=== PATIENT | female | born 1980 | race Caucasian/White ===

== ENCOUNTER 2020-02-24 17:21 | Outpatient (CLI) | payer OTHER ==
[2020-02-24] MEDS ORDERED: IOVERSOL 320 50 ML VIAL ONE (17:33)
[2020-02-24] MEDS ORDERED: IOVERSOL 320 100 ML VIAL IVP ONE (18:12)
[2020-02-24] MEDS ORDERED: IOVERSOL 320 100 ML VIAL IVP STA (19:27)
[2020-02-24] MEDS ORDERED: IOVERSOL 320 50 ML VIAL PO ONE (19:27)
--- NOTE | 2020-02-24 20:01 | CT Report ---
Reason: LLQ ABDOMINAL PAIN Procedure Date: 02/24/2020 Accession Number: [id number] / [id number] Procedure: CT - Abdomen/Pelvis W CPT Code: Addended Final Report FULL RESULT: EXAM: CT ABDOMEN AND PELVIS EXAM DATE: 02/24/2020 07:23 PM. CLINICAL HISTORY: Left lower quadrant abdominal pain and constipation x1 month. COMPARISONS: None. TECHNIQUE: Routine helical CT imaging was performed through the abdomen and pelvis. IV contrast: OPTIRAY 320. Enteric contrast: Yes. Reconstructions: Coronal and sagittal. In accordance with CT protocol optimization, one or more of the following dose reduction techniques were utilized for this exam: automated exposure control, adjustment of mA and/or KV based on patient size, or use of iterative reconstructive technique. FINDINGS: The lung bases are clear. The visible heart is normal in size. There is no pericardial effusion. The liver enhances homogeneously and is without evidence of focal intrahepatic mass. The gallbladder is normal. There is no biliary dilatation. The spleen, pancreas, and adrenal glands are within normal limits. The kidneys enhance symmetrically and are without evidence of mass or hydronephrosis. The intestines are normal in caliber and position. Retained stool seen throughout the colon. The appendix is normal. There is no evidence of bowel obstruction or inflammation. No free intraperitoneal air or ascites is seen. There is no lymphadenopathy. The intra-abdominal vasculature is within normal limits. A fibroid is seen in the inferior uterine body measuring 3.3 x 3.1 cm. The ovaries are normal. There is no free pelvic fluid. The bladder is normal. The osseous structures are intact and well aligned. The bone mineralization is normal. IMPRESSION: 1. No acute intra-abdominal abnormalities. 2. Retained stool. 3. Uterine fibroid. RADIA The call report notification system was initiated by Dr. Elizabet Edmonds at 08:00 PM on 02/24/2020. ADDENDUM: 02/24/20 20:03 The above call report findings were discussed with Whitney Harmon NP by Dr. Elizabet Edmonds at 08:03 PM on 02/24/2020.
== END 2020-02-24 17:22 | disposition home or self-care (01) ==
LOC: DI 17:21
PROVIDERS: ATTEND Nurse Practitioner Family
DX: R10.32 Left lower quadrant pain (principal); K59.00 Constipation, unspecified; D25.9 Leiomyoma of uterus, unspecified
CPT/HCPCS: 74177; Q9967

== ENCOUNTER 2021-11-07 10:09 | Emergency (ER) | payer OTHER ==
[2021-11-07 10:18] VITALS: BP 124/87
[2021-11-07] MEDS ORDERED: CHERRY SYRUP 10 ML UDC PO ONE (10:41)
[2021-11-07] MEDS ORDERED: DEXAMETHASONE 10 MG/ML VIAL PO STA (10:41)
--- NOTE | 2021-11-07 10:44 | ED Physician Documentation ---
PD HPI URI - Stated complaint Stated Complaint: CHEST PX/SOA/COUGH - Chief complaint Chief Complaint: Cardiac - History obtained from History obtained from: Patient - History of Present Illness Timing - onset: How many days ago (4) Timing duration: Days (4) Timing details: Gradual onset, Still present Associated symptoms: Fever, Nasal congestion, Dry cough, Chest pain, Dyspnea Contributing factors: Sick contact ( and son sick with similar) Improves by: Medication Worsened by: Activity Similar symptoms before: Diagnosis (covid) Recently seen: Not recently seen - Additional information Additional information: 41-year-old female who had COVID in June of this year has developed a cough congestion and chest burning. She has been exposed to a son who has COVID now.She is unimmunized. Review of Systems Constitutional: denies: Fever Ears: denies: Ear pain Nose: reports: Congestion Throat: reports: Sore throat Cardiac: reports: Chest pain / pressure. denies: Palpitations Respiratory: reports: Cough. denies: Dyspnea GI: denies: Vomiting PD PAST MEDICAL HISTORY - Allergies Allergies/Adverse Reactions: Allergies Allergy/AdvReac Type Severity Reaction Status Date / Time No Known Drug Allergies Allergy Verified 11/07/21 10:18 PD ED PE NORMAL - Vitals Vital signs reviewed: Yes (Hypertensive mild) - General General: Alert and oriented X 3, No acute distress, Well developed/nourished - HEENT HEENT: Atraumatic, PERRL, EOMI, Ears normal, Moist mucous membranes, Pharynx benign, Dentition benign - Neck Neck: Supple, no meningeal sign, No bony TTP - Cardiac Cardiac: RRR, No murmur - Respiratory Respiratory: No respiratory distress, Clear bilaterally - Abdomen Abdomen: Normal bowel sounds, Soft, Non tender, Non distended, No organomegaly - Back Back: No CVA TTP, No spinal TTP - Derm Derm: Normal color, Warm and dry, No rash - Extremities Extremities: No deformity, No edema - Neuro Neuro: Alert and oriented X 3, screen tender 2-12 intact, No motor deficit, No sensory deficit, Normal speech Eye Opening: Spontaneous Motor: Obeys Commands Verbal: Oriented GCS Score: 15 - Psych Psych: Normal mood, Normal affect Results - Vitals Vitals: Vital Signs - 24 hr 11/07/21 10:13 Temperature 36.6 C Heart Rate 90 Respiratory 18 Rate Blood Pressure 124/87 H O2 Saturation 100 - EKG (time done) 1017 Rate: Rate (enter#) (68) QRS: Low voltage Ischemia: Normal ST segments Compare to prior EKG: Old EKG unavailable Computer interpretation: Agree with computer PD MEDICAL DECISION MAKING - ED course Complexity details: considered differential, d/w patient, d/w family ED course: 41-year-old female with prior COVID infection has recent exposure and symptoms. Physical exam does not demonstrate any obvious ENT infection. Patient's lungs are clear she is not hypoxic. A COVID test is obtained. Departure - Departure Disposition: Home, Self Care Clinical Impression: Viral URI with cough Condition: Stable Instructions: ED Viral Syndrome, COVID-19 [facility], Flu and Cold: Nutrition, Prevention and Treatment Tips Follow-Up: [facility] [Provider Group] Comments: Isoke, today it appears you have a viral upper respiratory tract infection possibly even COVID. Your test will be resulted in 1 to 3 days. You can get the results through the patient portal. In the meantime follow the instructions on treatment of viral URI as suggested in the instructions. Treatment with Tylenol for fever and aches, will need to be repeated as often as every 4 hours. Increased fluids are important. Discharge Date/Time: 11/07/21 11:34
== END 2021-11-07 11:34 | disposition home or self-care (01) ==
LOC: ED 10:09
DX: J06.9 Acute upper respiratory infection, unspecified (principal)
CPT/HCPCS: 93005; 99282; 99283; A9270

== ENCOUNTER 2022-06-28 11:45 | Outpatient (CLI) | payer OTHER ==
[2022-06-29 20:19] LABS: CHLAMYDIA TRACHOMATIS DNA NEGATIVE (NEGATIVE); NEISSERIA GONORRHOEAE DNA NEGATIVE (NEGATIVE); TRICHOMONAS VAGINALIS DNA NEGATIVE (NEGATIVE)
== END 2022-06-28 23:59 | disposition home or self-care (01) ==
LOC: LAB 11:45
PROVIDERS: ATTEND Obstetrics & Gynecology
DX: Z11.3 Encounter for screening for infections with a predominantly sexual mode of transmission (principal)
CPT/HCPCS: 87491; 87591; 87661

== ENCOUNTER 2022-07-14 12:58 | Outpatient (CLI) | payer OTHER ==
[2022-07-14 19:23] LABS: HCT - HEMATOCRIT 38.4 % (37.0-47.0); HGB - HEMOGLOBIN 12.9 g/dL (12.0-16.0); MEAN CORPUSCULAR HEMOGLOBIN 30.7 pg (27.0-31.0); MEAN CORPUSCULAR HGB CONC 33.6 g/dL (32.0-36.0); MEAN CORPUSCULAR VOLUME 91.4 fL (81.0-99.0); MEAN PLATELET VOLUME 12.5 fL (7.9-10.8); RED BLOOD COUNT 4.2 10^6/uL (4.20-5.40); RED CELL DISTRIBUTION WIDTH 15.3 % (12.0-15.0); WHITE BLOOD COUNT 4.4 x10^3/uL (4.8-10.8)
[2022-07-14 19:55] LABS: THYROID STIMULATING HORMONE 1.52 uIU/mL (0.34-5.60)
[2022-07-14 20:00] LABS: PROLACTIN 5.32 ng/mL
[2022-07-14 20:22] LABS: FOLLICLE STIMULATING HORMONE 8.09 mIU/mL
[2022-07-14 20:23] LABS: LUTEINIZING HORMONE 4.3 mIU/mL
[2022-07-16 06:08] LABS: HBsAG SCREEN Negative (Negative); HCV AB <0.1 s/co ratio (0.0-0.9)
[2022-07-16 11:09] LABS: HIV SCREEN 4TH GENERATION Non Reactive (Non Reactive)
[2022-07-16 12:08] LABS: ESTRADIOL 53.3 pg/mL (.)
[2022-07-17 07:09] LABS: RPR Non Reactive (Non Reactive)
== END 2022-07-14 12:59 | disposition home or self-care (01) ==
LOC: LAB.N 12:58
PROVIDERS: ATTEND Obstetrics & Gynecology
DX: N97.9 Female infertility, unspecified (principal); Z11.3 Encounter for screening for infections with a predominantly sexual mode of transmission
CPT/HCPCS: 36415; 82397; 82670; 83001; 83002; 84146; 84443; 85027; 86592; 86803; 87340; 87389; 87491; 87591; 87661

== ENCOUNTER 2023-05-15 09:17 | Outpatient (CLI) | payer OTHER ==
--- NOTE | 2023-05-15 14:03 | XRAY Report ---
PROCEDURE: Knee 4 View BILAT INDICATIONS: KNEE PAIN,BILATERAL TECHNIQUE: 4 views of the bilateral knee(s) were acquired. COMPARISON: None. FINDINGS: Bones: No fractures or dislocations. No suspicious bony lesions. Mild bilateral medial tibiofemor al joint space narrowing with osteophytic lipping of the tibial plateaus. Soft tissues: No knee joint effusion. No suspicious soft tissue calcifications or masses. IMPRESSION: Mild bilateral unicompartmental osteoarthritis. Kellgren-Ishaan scale of osteoarthritis: 1 Reviewed by: Dangelo Echeverria on 05/15/2023 2:02 PM PDT Approved by: Dangelo Echeverria on 05/15/2023 2:02 PM PDT Station ID: [id number]
== END 2023-05-15 09:18 | disposition home or self-care (01) ==
LOC: DI 09:17
PROVIDERS: ATTEND Nurse Practitioner
DX: M17.0 Bilateral primary osteoarthritis of knee (principal)

== ENCOUNTER 2023-06-17 15:15 | Outpatient (CLI) | payer OTHER ==
[2023-06-17 18:45] LABS: BASOPHILS % (AUTO) 0.4 %; EOSINOPHILS # (AUTO) 0.2 10^3/uL (0.0-0.7); HCT - HEMATOCRIT 36.2 % (37.0-47.0); LYMPHOCYTES # (AUTO) 1.6 10^3/uL (1.5-3.5); LYMPHOCYTES % (AUTO) 30.8 %; MEAN CORPUSCULAR HEMOGLOBIN 30.9 pg (27.0-31.0); MEAN CORPUSCULAR HGB CONC 33.1 g/dL (32.0-36.0); MEAN CORPUSCULAR VOLUME 93.3 fL (81.0-99.0); MEAN PLATELET VOLUME 11.5 fL (7.9-10.8); MONOCYTES # (AUTO) 0.7 10^3/uL (0.0-1.0); MONOCYTES % (AUTO) 13.1 %; NEUTROPHILS # (AUTO) 2.6 10^3/uL (1.5-6.6); NEUTROPHILS % (AUTO) 52.5 %; PLT - PLATELET COUNT 263 10^3/uL (130-450); RED BLOOD COUNT 3.88 10^6/uL (4.20-5.40); RED CELL DISTRIBUTION WIDTH 16.2 % (12.0-15.0)
[2023-06-17 18:56] LABS: ALBUMIN 4.2 g/dL (3.2-5.5); ALBUMIN/GLOBULIN RATIO 1.3 (1.0-2.2); BILIRUBIN,TOTAL 0.5 mg/dL (0.2-1.0); CALCIUM 9.6 mg/dL (8.5-10.3); CREATININE 0.9 mg/dL (0.6-1.3); POTASSIUM 3.6 mmol/L (3.5-4.5); TOTAL PROTEIN 7.4 g/dL (6.4-8.9)
[2023-06-17 19:04] LABS: THYROID STIMULATING HORMONE 2.37 uIU/mL (0.34-5.60)
== END 2023-06-17 15:30 | disposition home or self-care (01) ==
LOC: LAB.N 15:15
PROVIDERS: ATTEND Registered Nurse
DX: R22.2 Localized swelling, mass and lump, trunk (principal)
CPT/HCPCS: 36415; 80053; 84443; 85025

== ENCOUNTER 2023-06-24 16:57 | Emergency (ER) | payer OTHER ==
[2023-06-24 17:32] LABS: BASOPHILS % (AUTO) 0.4 %; EOSINOPHILS # (AUTO) 0.2 10^3/uL (0.0-0.7); EOSINOPHILS % (AUTO) 2.6 %; HCT - HEMATOCRIT 35.4 % (37.0-47.0); HGB - HEMOGLOBIN 11.9 g/dL (12.0-16.0); LYMPHOCYTES # (AUTO) 1.7 10^3/uL (1.5-3.5); LYMPHOCYTES % (AUTO) 23.4 %; MEAN CORPUSCULAR HGB CONC 33.6 g/dL (32.0-36.0); MEAN CORPUSCULAR VOLUME 92.2 fL (81.0-99.0); MEAN PLATELET VOLUME 10.4 fL (7.9-10.8); MONOCYTES # (AUTO) 0.7 10^3/uL (0.0-1.0); MONOCYTES % (AUTO) 9.8 %; NEUTROPHILS # (AUTO) 4.5 10^3/uL (1.5-6.6); NEUTROPHILS % (AUTO) 63.5 %; PLT - PLATELET COUNT 237 10^3/uL (130-450); RED BLOOD COUNT 3.84 10^6/uL (4.20-5.40); RED CELL DISTRIBUTION WIDTH 15.9 % (12.0-15.0); WHITE BLOOD COUNT 7.1 x10^3/uL (4.8-10.8)
--- NOTE | 2023-06-24 17:43 | ED Physician Documentation ---
History of Present Illness - Stated complaint Stated Complaint: - Chief complaint Chief Complaint: Abd Pain - History obtained from History obtained from: Patient - History of Present Illness Timing: Today Pain level max: 3 Pain level now: 0 - Additonal information Additional information: 43 yo F . Presents to the emergency department, complaining of vaginal bleeding/spotting. She states that the bleeding has mostly resolved at this point. She thinks that she is approximately five weeks . No complications of this so far. Has not had an ultrasound. Had mild pelvic cramping earlier. No trauma. Patient states the cramping has mostly resolved as well. Review of Systems Constitutional: denies: Fever, Chills Respiratory: denies: Cough GI: denies: Nausea, Vomiting, Diarrhea : denies: Dysuria, Frequency, Hesitancy, Discharge PD PAST MEDICAL HISTORY - Past Medical History Past Medical History: No - Past Surgical History Past Surgical History: Yes - Allergies Allergies/Adverse Reactions: Allergies Allergy/AdvReac Type Severity Reaction Status Date / Time No Known Drug Allergies Allergy Verified 06/24/23 17:00 - Social History Does the pt smoke?: No Smoking Status: Never smoker Does the pt drink ETOH?: No Does the pt have substance abuse?: No - Immunizations Immunizations are current?: Yes PD ED PE NORMAL - Vitals Vital signs reviewed: Yes - General General: Alert and oriented X 3, No acute distress - HEENT HEENT: Moist mucous membranes - Neck Neck: Supple, no meningeal sign - Cardiac Cardiac: RRR, Strong equal pulses - Respiratory Respiratory: No respiratory distress, Clear bilaterally - Abdomen Abdomen: Soft, Non tender, Non distended - Derm Derm: Warm and dry, No rash - Extremities Extremities: No edema - Neuro Neuro: Alert and oriented X 3 - Psych Psych: Normal mood, Normal affect Results - Vitals Vitals: Vital Signs - 24 hr 06/24/23 06/24/23 17:00 18:52 Temperature 37.0 C Heart Rate 80 78 Respiratory 16 16 Rate Blood Pressure 124/79 122/80 O2 Saturation 100 98 Oxygen O2 Source Room air - Labs Labs: Laboratory Tests 06/24/23 06/24/23 06/24/23 17:29 17:29 18:03 WBC 7.1 RBC 3.84 L Hgb 11.9 L Hct 35.4 L MCV 92.2 MCH 31.0 MCHC 33.6 RDW 15.9 H Plt Count 237 MPV 10.4 Neut # (Auto) 4.5 Lymph # (Auto) 1.7 [place] # (Auto) 0.7 Eos # (Auto) 0.2 Baso # (Auto) 0.0 Absolute Nucleated RBC 0.00 Nucleated RBC % 0.0 Sodium 136 Potassium 3.8 Chloride 106 Carbon Dioxide 26 Anion Gap 4.0 L BUN 8 Creatinine 1.1 Estimated GFR (MDRD) 55 L Glucose 121 H Calcium 9.5 Total Bilirubin 0.3 AST 12 ALT 9 L Alkaline Phosphatase 49 Total Protein 7.1 Albumin 4.2 Globulin 2.9 Albumin/Globulin Ratio 1.4 Lipase 25 Beta HCG, Quant 5150.3 Urine Color YELLOW Urine Clarity CLEAR Urine pH 6.5 Ur Specific [place] 1.020 Urine Protein NEGATIVE Urine Glucose (UA) NEGATIVE Urine Ketones NEGATIVE Urine Occult Blood SMALL H Urine Nitrite NEGATIVE Urine Bilirubin NEGATIVE Urine Urobilinogen 0.2 (NORMAL) Ur Leukocyte Esterase NEGATIVE Urine RBC 0-5 Urine WBC 0-3 Ur Squamous Epith Cells FEW Squamous Urine Bacteria Rare Ur Microscopic Review INDICATED Urine Culture Comments NOT INDICATED - Rads (name of study) OB US Relevant Findings:: Final report received PD Medical Decision Making - ED course Complexity details: reviewed results, re-evaluated patient, considered differential, d/w patient, d/w family ED course: Patient with vaginal bleeding affecting early . Her ultrasound is consistent with possible early miscarriage versus possible early . Possibly approximately five weeks estimated gestational age. Her hCG is ap proximately 5000. We will have her follow up with OB for further care, repeat, hCG and likely repeat ultrasound. Ectopic precautions given at bedside. Patient counseled regarding possibility of early miscarriage as well. Patient counseled regarding signs and symptoms for which I believe and urgent re- evaluation would be necessary. Patient with good understanding of and agreement to plan and is comfortable going home at this time. This document was made in part using voice recognition software. While efforts are made to proofread this document, sound alike and grammatical errors may occur. Departure - Departure Disposition: 01 Home, Self Care Clinical Impression: Vaginal bleeding affecting early Condition: Good Instructions: ED Miscarriage Poss Follow-Up: Yu Vega ARNP [Primary Care Provider] - [facility] [Provider Group] Comments: Please follow-up with your doctor for further care. Your ultrasound today does show evidence of a . It is estimated that you are approximately 5 weeks and 4 days . A miscarriage is also possible, especially early in , you will need a repeat beta hCG in approximately 3 days with your doctor. They should be able to place an order for this for you if you call them tomorrow. You may also need a repeat ultrasound in a week. Please return for increasing pain, bleeding or other new or worrisome symptoms. Your hCG is 5150.3 today. Forms: PCP List Discharge Date/Time: 06/24/23 18:52
[2023-06-24 17:45] LABS: ALBUMIN 4.2 g/dL (3.2-5.5); ALBUMIN/GLOBULIN RATIO 1.4 (1.0-2.2); BILIRUBIN,TOTAL 0.3 mg/dL (0.2-1.0); CALCIUM 9.5 mg/dL (8.5-10.3); CREATININE 1.1 mg/dL (0.6-1.3); POTASSIUM 3.8 mmol/L (3.5-4.5); TOTAL PROTEIN 7.1 g/dL (6.4-8.9)
[2023-06-24 18:15] LABS: BILIRUBIN,URINE NEGATIVE (NEGATIVE); GLUCOSE, URINE (UA) NEGATIVE (NEGATIVE); KETONES,URINE (UA) NEGATIVE (NEGATIVE); LEUKOCYTE ESTERASE, URINE NEGATIVE (NEGATIVE); NITRITE,URINE NEGATIVE (NEGATIVE); OCCULT BLOOD,URINE SMALL (NEGATIVE); PH,URINE 6.5 PH (5.0-7.5); PROTEIN,URINE NEGATIVE (NEGATIVE); UROBILINOGEN,URINE 0.2 (NORMAL) E.U./dL (NORMAL)
[2023-06-24 18:16] LABS: CLARITY,URINE CLEAR (CLEAR)
[2023-06-24 18:24] LABS: BACTERIA,URINE Rare /HPF (None Seen); RBC,URINE 0-5 /HPF (0-5); SQUAMOUS EPITHELIAL CELL,UR FEW Squamous (<= Few); WBC,URINE 0-3 /HPF (0-5)
--- NOTE | 2023-06-24 18:33 | Ultrasound Report ---
PROCEDURE: OB First Trimester w/TV INDICATIONS: + preg, vag bleeding OUTSIDE/PRIOR DATING DATA: Last menstrual period (LMP): Unknown. LMP-based estimated date of delivery (MONIKA): Not applicable. First dating scan (date and location): Not applicable. Estimated date of delivery (MONIKA) from first dating scan: Not applicable. TECHNIQUE: Real-time scanning was performed of the fetus and maternal pelvic organs, with image documentation. Endovaginal scanning was also performed to better visualize the fetus and maternal ovaries. COMPARISON: None. FINDINGS: Embryo: There is a potential gestational sac seen that measures 0.77 mm, which corresponds to an mini mated gestational age of 5 weeks 4 days. No pole is seen at this time. Debris with fluid can be seen along the endometrial stripe. Measurement variability in dating: +/- 4 weeks by LMP, +/- 7 days by mean sac diameter (use before 6 weeks gestation if crown-rump length not able to be measured), +/- 5 days by crown-rump length (6-12 weeks gestation). Maternal organs: The right ovary is unremarkable. The left ovary is not definitely seen. Uterine fibr oids are seen. IMPRESSION: Likely intrauterine gestational sac. Differential diagnosis includes early versus incomplet e spontaneous miscarriage. There is debris with fluid seen along the endometrial stripe. Close clinical follow-up with serial beta hCG measurements and serial ultrasound would be recommended , as clinically appropriate. Note: Concordant preliminary findings given by the dynamometer tester engine upon the completion of the examination to Dr. Tamez. Reviewed by: Ovidio Barnes MD on 06/24/2023 5:31 PM YULI Approved by: Ovidio Barnes MD on 06/24/2023 5:31 PM YULI Station ID: [id number]
[2023-06-24 18:54] VITALS: BP 122/80; O2SAT 98
== END 2023-06-24 18:52 | disposition home or self-care (01) ==
LOC: ED 16:57
DX: O20.9 Hemorrhage in early pregnancy, unspecified (principal); Z3A.01 Less than 8 weeks gestation of pregnancy
CPT/HCPCS: 36415; 80053; 81001; 81003; 83690; 84702; 85025; 87086; 99283; 99284

== ENCOUNTER 2023-06-27 14:02 | Outpatient (CLI) | payer OTHER | END 2023-06-27 14:03 | disposition home or self-care (01) | LOC: LAB.N 14:02 | PROVIDERS: ATTEND Obstetrics & Gynecology | DX: Z32.01 Encounter for pregnancy test, result positive (principal) | CPT/HCPCS: 36415; 84702 ==

== ENCOUNTER 2023-07-04 11:26 | Outpatient (CLI) | payer OTHER ==
--- NOTE | 2023-07-04 16:54 | Ultrasound Report ---
PROCEDURE: OB First Trimester w/TV INDICATIONS: POSITIVE TEST OUTSIDE/PRIOR DATING DATA: Last menstrual period (LMP): 05/09/2023. LMP-based estimated date of delivery (MONIKA): 11/23/2023. First dating scan (date and location): 07/04/2023 at [facility]. TECHNIQUE: Real-time scanning was performed of the fetus and maternal pelvic organs, with image documentation. Endovaginal scanning was also performed to better visualize the fetus and maternal ovaries. COMPARISON: OB ultrasound 06/24/2023. FINDINGS: Intrauterine gestational sac present. Embryo: There is an intrauterine gestational sac. Question pole measuring 0.56 cm, correspondi ng to an estimated gestational age is 6 weeks 2 days. heart tone is absent. Other: No perigestational fluid collection. Measurement variability in dating: +/- 4 weeks by LMP, +/- 7 days by mean sac diameter (use before 6 weeks gestation if crown-rump length not able to be measured), +/- 5 days by crown-rump length (6-12 weeks gestation). Maternal organs: There are multiple uterine fibroids. Ovaries appear within normal limits. There is a corpus due to cyst in the right ovary. IMPRESSION: 1. An intrauterine gestational sac is identified with an possible pole. No heart tone is present at this time. Recommend correlation with quantitative serum beta-hCG. Consider follow-up imag ing if clinically indicated. 2. Multiple uterine fibroids. 3. A corpus due to cyst in the right ovary. Reviewed by: Shira Torres MD on 07/04/2023 4:52 PM PDT Approved by: Shira Torres MD on 07/04/2023 4:52 PM PDT Station ID: [id number]
== END 2023-07-04 11:27 | disposition home or self-care (01) ==
LOC: DI 11:26
PROVIDERS: ATTEND Obstetrics & Gynecology
DX: Z32.01 Encounter for pregnancy test, result positive (principal); D25.9 Leiomyoma of uterus, unspecified; N83.11 Corpus luteum cyst of right ovary

== ENCOUNTER 2023-07-10 12:38 | Outpatient (CLI) | payer OTHER ==
[2023-07-10 17:49] LABS: BASOPHILS % (AUTO) 0.3 %; EOSINOPHILS # (AUTO) 0.1 10^3/uL (0.0-0.7); EOSINOPHILS % (AUTO) 1.6 %; HCT - HEMATOCRIT 36.2 % (37.0-47.0); HGB - HEMOGLOBIN 12.1 g/dL (12.0-16.0); LYMPHOCYTES # (AUTO) 1.7 10^3/uL (1.5-3.5); MEAN CORPUSCULAR HEMOGLOBIN 30.9 pg (27.0-31.0); MEAN CORPUSCULAR HGB CONC 33.4 g/dL (32.0-36.0); MEAN CORPUSCULAR VOLUME 92.6 fL (81.0-99.0); MEAN PLATELET VOLUME 11.5 fL (7.9-10.8); MONOCYTES # (AUTO) 0.8 10^3/uL (0.0-1.0); MONOCYTES % (AUTO) 12.5 %; NEUTROPHILS # (AUTO) 3.5 10^3/uL (1.5-6.6); NEUTROPHILS % (AUTO) 57.3 %; PLT - PLATELET COUNT 252 10^3/uL (130-450); RED BLOOD COUNT 3.91 10^6/uL (4.20-5.40); WHITE BLOOD COUNT 6.2 x10^3/uL (4.8-10.8)
[2023-07-10 18:01] LABS: ALBUMIN 4.1 g/dL (3.2-5.5); ALBUMIN/GLOBULIN RATIO 1.3 (1.0-2.2); BILIRUBIN,TOTAL 0.3 mg/dL (0.2-1.0); CALCIUM 9.7 mg/dL (8.5-10.3); TOTAL PROTEIN 7.3 g/dL (6.4-8.9)
== END 2023-07-10 12:39 | disposition home or self-care (01) ==
LOC: LAB.N 12:38
PROVIDERS: ATTEND Nurse Practitioner
DX: R53.83 Other fatigue (principal)
CPT/HCPCS: 36415; 80053; 85025

== ENCOUNTER 2023-11-13 14:09 | Outpatient (CLI) | payer OTHER ==
[2023-11-13 17:58] LABS: CREATININE,URINE 115.7 mg/dL; MICROALBUM/CREATININE RATIO,UR 6.1 ug/mg (<30.0); MICROALBUMIN,URINE 0.7 mg/dL
[2023-11-13 18:02] LABS: ALBUMIN 4.2 g/dL (3.2-5.5); ALBUMIN/GLOBULIN RATIO 1.3 (1.0-2.2); BILIRUBIN,TOTAL 0.4 mg/dL (0.2-1.0); POTASSIUM 3.7 mmol/L (3.5-4.5); TOTAL PROTEIN 7.4 g/dL (6.4-8.9)
== END 2023-11-13 14:10 | disposition home or self-care (01) ==
LOC: LAB.N 14:09
PROVIDERS: ATTEND Nurse Practitioner
DX: I10 Essential (primary) hypertension (principal)
CPT/HCPCS: 36415; 80053; 82043; 82570